=== PATIENT | female | born 1985 | race Caucasian/White ===

== ENCOUNTER → 2020-08-14 | Outpatient (CLI) | payer OTHER ==
[~2020-08-14] MED LIST: COLACE 100100 MG/CAP PO; IBU800 M1 PO; MAGNESIUM200 MG PO; PERCOCET 325 MG1 TA2 PO; PRENATAL; PROTONIX20 MG PO; UNISOM25 MG PO; VALTREX1 GM PO
--- NOTE | 2020-08-14 14:10 | NUR ---
Pt, Prabha Pan, presents for outpatient consult with 11 week old baby girl, Sanjiv Pan. Prabha reports Sanjiv is not gaining weight as expected and is having feeding difficulties. Sanjiv was born on [birth year] and weighed 7#14oz (3572 gms). She is Prabha's second baby; her first nursed for 5 months and continued to get EBM for a full year. Sanjiv was seen by Dr. Ro on 08/01/20 for a 2 month appt and weighed 10#8oz. Today Sanjiv weighs 10#10.1oz (4822 gms). Sanjiv does not show much interest in despite it being 3.5 hours since her last feeding. LC and pt interact with Sanjiv for about 15 min and she then latches to the left breast. Sanjiv does have a recessed jaw and pt advised to pull Sanjiv's chin in close as the nipple may not be getting deep enough into the mouth. Sanjiv generally nurses in a more extended position with the feed angling to pt's knees vs, legs around the rib cage. Sanjiv latche in this position and nurses ~5 min with very frequent swallows noted. Her weight gain after this short time at the breast is 2.3oz (64 gms). Sanjiv then refuses to latch on the second breast, crying, and arching. Pt works well with settling her and states it takes 30 min to 60 min to nurse the second breast. Pt has tried bottle feeding EBM and formula. She generally does the same feeding pattern with taking part of the bottle but resting for a stretch of time before finishing. It does not seem to make a difference if she is offered formula or EBM by bottle. Spitting after feeding is not a consistent or significant observation. Impression: consider "silent relux" vs. dairy protien intolerance. Pt to review with Dr. Ro at [facility] that will follow this consult. Recommendation: After consultation with Dr. Ro to evaluate most likely cause of feeding issues consider: Small more frequent feedings ex: Breastfeed 1 breast, then rest baby and breastfeed second breast in 2 hours. This essentially what is happening now, but pt is offering the breast a little earlier. If reflux follow medical advice if mediations are prescribed, keep infant upright after feeding x 30 min. If dairy protien concern consider offering dairly free formula (nutramagin) and pt goes on dairy free diet for 7-10 days, then re-introduce breastmilk to baby. Pt will pump every feeding to maintain supply. POC: Noted above. F/U: Pending outcome of Sanjiv's appt. with Dr. Ro. Questions invited and answered.
== END ==
LOC: LAC 12:52
DX: Z39.1 Encounter for care and examination of lactating mother (principal); Z71.89 Other specified counseling